=== PATIENT | male | born 1975 | race Asian ===

== ENCOUNTER 2024-01-15 08:17 | Outpatient (AMB) | payer OTHER, SELFPAY ==
[2024-01-15 08:35] VITALS: BP 120/80; PULSE 5; TEMP 37; O2SAT 97; BMI 25.5
--- NOTE | 2024-01-15 08:35 | AM.OFFWIN_ITS ---
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 Pt denies any chronic medical problems. Denies injury or trauma. He does c/o right sided headache. PFSH Social History Patient Tobacco Use Status: Current everyday Tobacco user Review of Systems Const All systems reviewed & are unremarkable except as noted in HPI and below Physical Exam Vital Signs: Last Vital Signs Temp 98.6 F 01/15/24 08:35 Pulse 5 L 01/15/24 08:35 BP 120/80 01/15/24 08:35 Pulse Ox 97 01/15/24 08:35 Oxygen Delivery Method Room Air 01/15/24 08:35 BMI result Body Mass Index 25.5 Const General: comfortable and no acute distress Orientation/consciousness: patient oriented x3 Eyes Pupils: Equal, round and reactive pupils present EOM: EOMs intact bilaterally Cardio Rate: regular rate Rhythm: regular rhythm Neuro General: patient oriented x3, gait normal and moves all extremities Cranial nerves: Yes CN's II-XII intact bilaterally and Yes Equal, round and reactive pupils present Motor exam (neuro): 5/5 motor strength present throughout Psych Affect: normal affect Attitude: cooperative Assessment & Plan Assessment & Plan (1) Peripheral neuropathy: Code(s): G62.9 - Polyneuropathy, unspecified Qualifiers: Peripheral neuropathy type: polyneuropathy, unspecified Qualified Code(s): G62.9 - Polyneuropathy, unspecified Plan: - No signs of Stroke, exam normal - No clear etiology - Pt has an upcoming appointment with new PCP - Will prescribe Muscle relaxants today. Medications: New cyclobenzaprine 5 mg PO BEDTIME 14 tabs 0RF G62.9 - Polyneuropathy, unspecified Coding Level of Care Code New Pt Level 3 (22595) Diagnoses Peripheral polyneuropathy G62.9 Peripheral neuropathy type: polyneuropathy, unspecified Time Spent (min) 15
== END 2024-01-15 10:52 | disposition home or self-care (01) ==
PROVIDERS: PCP Nurse Practitioner Family; Visit Provider Nurse Practitioner Family
DX: G62.9 Polyneuropathy, unspecified (principal)
CPT/HCPCS: 99203

== ENCOUNTER 2024-03-04 08:50 | Outpatient (AMB) | payer OTHER, SELFPAY ==
--- NOTE | 2024-03-04 08:52 | AM.OFFWIN_ITS ---
Intake Vital Signs 03/04/24 08:53 Height 5 ft 3 in Weight 142 lb 4 oz BMI 25.2 BP 128/80 Blood Pressure Location Lt brachial Position Sitting Pulse 73 Pulse Source Pulse Oximeter Temp 98.1 F Temp Source Oral Pulse Oximetry (%) 97 Oxygen Delivery Method Room Air Intake Visit Reasons: EP headache Intake Note: Pt presents to the office today for c/o cough,wheezing, and a headache that started about a week ago. Patient Tobacco Use Status: Former Tobacco user Allergies No Known Allergies Allergy (Verified 03/04/24 08:55) Medication List - Last Reconciled 03/04/24 by Rose Pinto MD No Known Home Meds HPI EP headache HPI Details 48-year-old gentleman came in today to b e evaluated for upper respiratory tract infection Patient has been having symptoms for the past 10 days Patient says that it started with allergy like symptoms and now he has nasal congestion and cough spitting out yellow phlegm At night he hear himself wheeze There is no chest pain no shortness a breath no nausea vomiting no diarrhea there is mild chills but he has not checked his temperature In clinic today patient is afebrile His examination is benign other than nasal congestion I am prescribing azithromycin and prednisone for 5 days Patient was also instructed to get Zyrtec [id number] if he has allergies and start taking that. [facility] Social History Patient Tobacco Use Status: Former Tobacco user Review of Systems Const All systems reviewed & are unremarkable except as noted in HPI and below Physical Exam Vital Signs: Last Vital Signs Temp 98.1 F 03/04/24 08:53 Pulse 73 03/04/24 08:53 BP 128/80 03/04/24 08:53 Pulse Ox 97 03/04/24 08:53 Oxygen Delivery Method Room Air 03/04/24 08:53 BMI result Body Mass Index 25.2 Const General: no acute distress HEENT Other: Mild throat erythema present, uvula midline, no exudate. Ears: mastoids normal General nose exam: Normal external nose present Throat: Yes posterior oropharynx abnormal Neck Neck: Yes no lymphadenopathy Resp Effort & Inspection: normal respiratory effort Auscultation: clear to auscultation bilaterally Cardio Other: S1 S2 Psych Mental Status: mental status grossly normal Assessment & Plan Assessment & Plan (1) URI with cough and congestion: Code(s): J06.9 - Acute upper respiratory infection, unspecified Plan 48-year-old gentleman came in today to be evaluated for upper respiratory tract infection Patient has been having symptoms for the past 10 days Patient says that it started with allergy like symptoms and now he has nasal congestion and cough spitting out yellow phlegm At night he hear himself wheeze There is no chest pain no shortness a breath no nausea vomiting no diarrhea there is mild chills but he has not checked his temperature In clinic today patient is afebrile His examination is benign other than nasal congestion I am prescribing azithromycin and prednisone for 5 days Patient was also instructed to get Zyrtec [id number] if he has allergies and start taking that. Medications: New azithromycin Take 2 tablets today then 1 daily 250 mg PO ONCE 6 tabs 0RF 5 days J06.9 - Acute upper respiratory infection, unspecified prednisone 20 mg PO DAILY 5 tabs 0RF 5 days Coding Level of Care Code Est Pt Level 3 (33853) Diagnoses URI with cough and congestion J06.9
[2024-03-04 08:53] VITALS: BP 128/80; PULSE 73; TEMP 36.7; O2SAT 97; BMI 25.2
== END 2024-03-04 09:37 | disposition home or self-care (01) ==
PROVIDERS: PCP Nurse Practitioner Family; Visit Provider Internal Medicine
DX: J06.9 Acute upper respiratory infection, unspecified (principal)
CPT/HCPCS: 99213

== ENCOUNTER 2024-04-29 11:25 | Outpatient (AMB) | payer OTHER, SELFPAY ==
[2024-04-29 11:27] VITALS: BP 126/78; PULSE 72; TEMP 36.7; O2SAT 98
--- NOTE | 2024-04-29 11:27 | MHC.OFFWIV ---
Intake Vital Signs 04/29/24 11:27 Height 5 ft 3 in BP 126/78 Blood Pressure Location Lt brachial Position Sitting Pulse 72 Pulse Source Pulse Oximeter Temp 98.0 F Temp Source Temporal Artery Scan Pulse Oximetry (%) 98 Oxygen Delivery Method Room Air Intake Visit Reasons: EP LT hand pain Intake Note: pt is here for left hand pain Patient Tobacco Use Status: Former Tobacco user Allergies No Known Allergies Allergy (Verified 04/29/24 11:27) Do you need a note to return to daycare/school/sports/work: No HPI EP LT hand pain HPI Details This note is constructed using voice recognition software. 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 48-year-old male patient presents left lower arm pain, onset over 1 year ago, but with worsening in the past week after lifting a heavy item. He notes that he has used ice in the past, but has not done anything else to resolve the pain. He has not been evaluated for in the past either. He notes that as a result of the pain he avoids squeezing his hand closed as that sometimes makes the pain worse. He did not have any injury, deformity, or previous surgery or injury to the area. [facility] Social History Patient Tobacco Use Status: Former Tobacco user Review of Systems Const All systems reviewed & are unremarkable except as noted in HPI and below Physical Exam Vital Signs: Last Vital Signs Temp 98.0 F 04/29/24 11:27 Pulse 72 04/29/24 11:27 BP 126/78 04/29/24 11:27 Pulse Ox 98 04/29/24 11:27 Oxygen Delivery Method Room Air 04/29/24 11:27 Const General: cooperative, healthy appearing, comfortable, no acute distress and alert Orientation/consciousness: patient oriented x3 Limitations: no limitations Skin Other: No erythema, ecchymosis. General skin exam: no rashes or lesions noted, elasticity normal and turgor normal Neuro General: patient oriented x3 Extrem Other: Increased tenderness on flexion and extension of wrist. No inflammation. General: Yes normal to inspection, Yes full ROM, Yes capillary refill normal and Yes normal exam except as noted Left upper extremity: normal to inspection, full ROM, normal capillary refill, no joint enlargement and elbow/forearm Details: tenderness (extensor tendon); ROM normal, no unusual warmth, no abrasions, no ecchymosis and no crepitus Psych Appearance: grossly normal Mental Status: mental status grossly normal Speech and movement: Normal speech and movement present Affect: normal affect Assessment & Plan Assessment & Plan (1) Left elbow tendinitis: Code(s): M77.8 - Other enthesopathies, not elsewhere classified Plan: Toni wrap applied to left elbow. Advised ice, rest, and use of NSAIDs. Prescription provided as patient does not have this at home. Patient has appointment with primary care provider in 1 month, advised follow-up with PCP if symptoms persist as he may need referral to ortho for consideration of treatment options versus physical therapy. Plan See above for full details and plan. Medications: New ibuprofen 600 mg PO Q8H 10 days PRN 30 tabs 0RF pain Coding Level of Care Code Est Pt Level 3 (79855) Diagnoses Left elbow tendinitis M77.8
== END 2024-04-29 11:41 | disposition home or self-care (01) ==
PROVIDERS: PCP Nurse Practitioner Family; Visit Provider Registered Nurse
DX: M77.8 Other enthesopathies, not elsewhere classified (principal)
CPT/HCPCS: 99213

== ENCOUNTER 2024-07-15 07:59 | Outpatient (AMB) | payer OTHER, SELFPAY ==
[2024-07-15 08:05] VITALS: BP 122/80; PULSE 57; O2SAT 98; BMI 25.3
--- NOTE | 2024-07-15 08:05 | AM.OFFWIN_ITS ---
Intake Vital Signs 07/15/24 08:05 Height 5 ft 3 in Weight 143 lb BMI 25.3 BP 122/80 Blood Pressure Location Rt brachial Position Sitting Pulse 57 Pulse Source Pulse Oximeter Pulse Oximetry (%) 98 Oxygen Delivery Method Room Air Intake Visit Reasons: EP Pain on his right side from head to his arm Intake Note: pt is here for pain on his right side, head to arm. Patient Tobacco Use Status: Former Tobacco user Allergies No Known Allergies Allergy (Verified 07/15/24 08:05) Do you need a note to return to daycare/school/sports/work: No HPI HPI Comments History of Present Illness Details This is a 48-year-old male with no stated past medical history presenting for left elbow pain that radiates to his left hand and right-sided neck pain that radiates in a tingling sensation to his right index finger. Patient denies any injury or trauma and states that his symptoms have been ongoing for ?months?. Patient took ibuprofen [id number] only 1 time without relief of his symptoms. [facility] Medical History (Updated 07/15/24 @ 08:28 by Charisse Velarde PA-C) Chronic lower back pain Social History Patient Tobacco Use Status: Former Tobacco user Review of Systems Const All systems reviewed & are unremarkable except as noted in HPI and below Reports no additional complaints Eyes Reports no additional complaints ENT Reports no additional complaints and Reports neck pain Musc Reports arthralgias (Left elbow), Reports neck pain and Reports tingling (Right index finger) Skin/Breast Reports system reviewed and no additional complaints, except as documented Neuro Reports radicular pain (Right upper extremity) and Reports tingling (Right index finger) Psych Reports no additional complaints Endo Reports no additional complaints Akhil/Lymph Reports no additional complaints Aller/Immun Reports no additional complaints Physical Exam Vital Signs: Last Vital Signs Pulse 57 07/15/24 08:05 BP 122/80 07/15/24 08:05 Pulse Ox 98 07/15/24 08:05 Oxygen Delivery Method Room Air 07/15/24 08:05 BMI result Body Mass Index 25.3 Const General: cooperative, healthy appearing, comfortable, no acute distress, well developed, alert, awake and Physically active Nutritional Appearance: average body habitus Orientation/consciousness: patient oriented x3 Limitations: no limitations Neck Neck: Yes full ROM, Yes no meningeal signs, Yes supple and Yes tender (right cervical paraspinous musculature; no midline tenderness) Lymphatic: no lymphadenopathy noted Skin General skin exam: no rashes or lesions noted Neuro General: patient oriented x3 and no meningeal signs Gait exam (Neuro): Normal gait present Motor exam (neuro): 5/5 motor strength present throughout (upper extremities bi laterally; surgical 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 strength 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 bilaterally) Extrem General: Yes normal to inspection and Yes full ROM Right upper extremity: normal to inspection, full ROM, normal capillary refill, shoulder/upper arm Details: normal ROM; no tenderness and no swelling and Extremity exam: right hand Details: normal to inspection, normal capillary refill, neuromotor exam normal and neurosensory exam normal Left upper extremity: normal to inspection, full ROM, normal capillary refill, no joint enlargement, elbow/forearm Details: tenderness (left lateral epicondyle and 2cm distal of epicondyle; no medical epicondyle pain) and hand Details: normal to inspection, normal capillary refill, neuromotor exam normal and ne urosensory exam normal Psych Appearance: grossly normal Mental Status: mental status grossly normal Insight: Good insight present (Psych) Judgement: Good judgement present (Psych) Assessment & Plan Assessment & Plan (1) Left lateral epicondylitis: Comment: Patient educated to use a counterforce brace. Code(s): M77.12 - Lateral epicondylitis, left elbow Plan: Naprosyn 500 mg b.i.d. times 10 days and the patient is instructed to use a counterforce brace during the day and remove at nighttime. (2) Right cervical radiculopathy: Code(s): M54.12 - Radiculopathy, cervical region Plan: Naprosyn 500 mg b.i.d. times 10 days. Follow up with PCP in 10-14 days for a re-evaluation of symptoms and possible referral for physical therapy evaluation. Medications: New naproxen (Naprosyn) 500 mg PO BID 20 tabs 0RF Coding Level of Care Code New Pt Level 4 (05069) Diagnoses Left lateral epicondylitis M77.12 Right cervical radiculopathy M54.12 Time Spent (min) 20
== END 2024-07-15 09:02 | disposition home or self-care (01) ==
PROVIDERS: PCP Nurse Practitioner Family; Visit Provider Physician Assistant
DX: M77.12 Lateral epicondylitis, left elbow (principal); M54.12 Radiculopathy, cervical region

== ENCOUNTER → 2024-07-15 07:59 | Outpatient (BNVA) | payer OTHER, SELFPAY | PROVIDERS: PCP Nurse Practitioner Family | DX: M77.12 Lateral epicondylitis, left elbow (principal); M54.12 Radiculopathy, cervical region | CPT/HCPCS: 99202 ==

== ENCOUNTER 2024-08-26 08:32 | Outpatient (REF) | payer OTHER, SELFPAY ==
[2024-08-26 11:11] LABS: Influenza A PCR NEGATIVE (Negative); Influenza B PCR NEGATIVE (Negative); Resp Syncy Virus RNA Qual PCR NEGATIVE (Negative); SARS COV2 PCR INHOUSE NEGATIVE (Negative)
== END 2024-08-26 08:33 | disposition home or self-care (01) ==
LOC: HO.HMGCX 08:32
PROVIDERS: PCP Nurse Practitioner Family; Visit Provider Physician Assistant Medical
DX: J06.9 Acute upper respiratory infection, unspecified (principal); R05.9 Cough, unspecified
CPT/HCPCS: 0241U; 71046; 99212

== ENCOUNTER 2024-08-26 08:32 | Outpatient (AMB) | payer OTHER, SELFPAY ==
--- NOTE | 2024-08-26 08:36 | MHC.OFFWIV ---
Intake Vital Signs 08/26/24 08:40 Height 5 ft 3 in Weight 139 lb BMI 24.6 BP 110/76 Blood Pressure Location Rt brachial Position Sitting Pulse 108 H Pulse Source Pulse Oximeter Temp 99.4 F Temp Source Oral Pulse Oximetry (%) 98 Oxygen Delivery Method Room Air Intake Visit Reasons: EP body aches, eye pain, cough, chills Intake Note: Patient here for headaches, cough, chills and body aches that has been present for 3 days, Patient Tobacco Use Status: Former Tobacco user Allergies No Known Allergies Allergy (Verified 08/26/24 08:41) Do you need a note to return to daycare/school/sports/work: Yes HPI HPI Comments History of Present Illness Details This is a 48-year-old male who presented to the walk-in clinic complaining of viral URI symptoms including fever/chills, nasal/sinus congestion, rhinorrhea, sore throat, myalgias, and a dry cough. Patient states he has not measured his temperature at home but he has subjective fevers. He denies any abdominal pain or nausea/vomiting/diarrhea. He denies any chest pain or shortness of breath. [facility] Medical History (Updated 07/15/24 @ 08:28 by Charisse Velarde PA-C) Chronic lower back pain Social History Patient Tobacco Use Status: Former Tobacco user Review of Systems Const All systems reviewed & are unremarkable except as noted in HPI and below Reports no additional complaints Eyes Reports no additional complaints ENT Reports no additional complaints Card Reports no additional complaints Resp Reports no additional complaints GI Reports no additional complaints Reports no additional complaints Musc Reports no additional complaints Skin/Breast Reports system reviewed and no additional complaints, except as documented Neuro Reports no additional complaints Psych Reports no additional complaints Endo Reports no additional complaints Akhil/Lymph Reports no additional complaints Aller/Immun Reports no additional complaints Physical Exam Vital Signs: Last Vital Signs Temp 99.4 F 08/26/24 08:40 Pulse 108 H 08/26/24 08:40 BP 110/76 08/26/24 08:40 Pulse Ox 98 08/26/24 08:40 Oxygen Delivery Method Room Air 08/26/24 08:40 BMI result Body Mass Index 24.6 Const Other: Vital signs reviewed. Constitutional: Non-toxic appearing. No acute distress. Well-developed and well-nourished. HEENT: Normocephalic and atraumatic.Moist mucous membranes. No pharyngeal erythema or exudates. Skin: Warm and dry. No rashes or lesions noted. Neck: Full and painless range of motion. No cervical lymphadenopathy. Cardio: Regular rate and rhythm. No murmurs, gallops, or rubs. No lower extremity edema. No JVD. Pulmonary: No respiratory distress. No accessory muscle usage. Clear to auscultation bilaterally without wheezing, crackles, or rhonchi. Gastrointestinal: Soft, nontender, and nondistended in all 4 quadrants. Normoactive bowel sounds in all 4 quadrants. Musculoskeletal: Normal range of motion in joints throughout the body. No deformity or other signs of injury. Neuro: Alert and oriented x4. Cranial nerves 2-12 grossly intact. No focal deficits appreciated. Psych: Normal mood and affect. Assessment & Plan Assessment & Plan (1) Acute upper respiratory infection, unspecified: Code(s): J06.9 - Acute upper respiratory infection, unspecified Plan: This is a 48-year-old male who presented to the walk-in clinic complaining of viral URI symptoms x3 days. Patient's history and physical most consistent with acute viral upper respiratory tract infection. A chest x-ray was obtained, which was negative for acute cardiopulmonary process. COVID/flu/RSV sent. Recommended symptomatic management including rest, increased fluids, advil/tylenol for pain/fever, and over the counter throat lozenges/decongestants. Patient advised to follow up here or go to the emergency room for worsening/persistent symptoms. Patient verbalized understanding and is agreeable with the plan. Orders: Orders XR chest 2V Today R05.9 - Cough, unspecified SARS-CoV2/FLU/RSV Today J06.9 - Acute upper respiratory infection, unspecified Medications: New fluticasone furoate 27.5 mcg/actuation into each nostril 2 sprays intranasal DAILY 6.6 mL 0RF benzonatate 100 mg PO TID PRN 10 caps 0RF cough Coding Level of Care Code Est Pt Level 3 (35688) Diagnoses Acute upper respiratory infection, unspecified J06.9
[2024-08-26 08:40] VITALS: BP 110/76; PULSE 108; TEMP 37.4; O2SAT 98; BMI 24.6
== END 2024-08-26 09:35 | disposition home or self-care (01) ==
PROVIDERS: PCP Nurse Practitioner Family; Visit Provider Physician Assistant Medical
DX: J06.9 Acute upper respiratory infection, unspecified (principal)

== ENCOUNTER 2025-02-06 12:27 | Outpatient (AMB) | payer OTHER, SELFPAY ==
[2025-02-06 12:28] VITALS: BP 124/82; PULSE 67; RESP 18; TEMP 36.9; O2SAT 98; BMI 24.8
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
== END 2025-02-06 13:00 | disposition home or self-care (01) ==
LOC: HO.HMCC 12:28
PROVIDERS: PCP Nurse Practitioner Family; Visit Provider Nurse Practitioner Family
DX: Z00.00 Encounter for general adult medical examination without abnormal findings (principal); Z12.11 Encounter for screening for malignant neoplasm of colon; Z12.5 Encounter for screening for malignant neoplasm of prostate; M54.50 Low back pain, unspecified; G89.29 Other chronic pain

== ENCOUNTER 2025-02-06 12:27 | Outpatient (REF) | payer OTHER, SELFPAY ==
--- NOTE | ~2025-02-06 | XR_ITS ---
EXAMINATION: XR LUMBOSACRAL SPINE CLINICAL INFORMATION: M54.50 - Low back pain, unspecified COMPARISON: None available. TECHNIQUE: Three views of the lumbosacral spine. FINDINGS: Marginal osteophyte formation and syndesmophyte formation at L4-5 and L2-3 levels. No acute cortical disruption or gross malalignment. No lytic or blastic lesions. Spina bifida occulta, S1. XR/XR lumbar spine 2-3V IMPRESSION: Mild multilevel lumbar spondylosis. Electronically signed by: Brando Szymanski MD 02/08/2025 07:32 AM EDT
--- NOTE | ~2025-02-06 | XR_ITS ---
EXAMINATION: XR SACRUM AND COCCYX CLINICAL INFORMATION: M54.50 - Low back pain, unspecified COMPARISON: None available. TECHNIQUE: 2 views of the sacrum and 2 views of the coccyx were obtained. FINDINGS: No acute cortical disruption. No gross malalignment. No lytic or blastic lesions. XR/XR sacrum coccyx min 2V IMPRESSION: No acute fracture or gross abnormality, sacrum. Electronically signed by: Brando Szymanski MD 02/08/2025 06:15 AM EDT
== END 2025-02-06 12:28 | disposition home or self-care (01) ==
LOC: HO.HMGCX 12:27
PROVIDERS: PCP Nurse Practitioner Family; Visit Provider Nurse Practitioner Family
DX: Z00.00 Encounter for general adult medical examination without abnormal findings (principal); M54.50 Low back pain, unspecified; G89.29 Other chronic pain
CPT/HCPCS: 72100; 72220; 96127; 99386

== ENCOUNTER → 2025-02-06 13:07 | Outpatient (BNV) | payer OTHER, SELFPAY | PROVIDERS: PCP Nurse Practitioner Family; Visit Provider Radiology Diagnostic Radiology | DX: M54.50 Low back pain, unspecified (principal) | CPT/HCPCS: 72100; 72220 ==

== ENCOUNTER 2025-02-10 09:27 | Outpatient (REF) | payer OTHER, SELFPAY ==
[2025-02-10 13:07] LABS: MANUAL DIFF FLAG NO
[2025-02-10 13:16] LABS: Appearance Urine Clear; Color Urine Yellow; Glucose Urine UA Negative (Negative); Leukocyte Esterase Urine Negative (Negative); Nitrite Urine Negative (Negative); Urine Blood Negative (Negative); Urine Ketones Trace mg/dL (Negative); Urine Protein Negative (Neg-Trace)
[2025-02-10 13:26] LABS: Basophils Percent Auto 0.7 % (0-2); Eosinophils Absolute Auto 0.2 X10*3/uL (0.0-0.4); Eosinophils Percent Auto 3.6 % (0-4); Hemoglobin 15.8 g/dl (14.0-18.0); Imm Gran Abs Auto 0.05 X10*3/uL (0.00-0.03); Imm Gran Pct Auto 0.8 % (0.0-0.4); Lymphocytes Percent Auto 33.3 % (20-40); Mean Corpuscular HGB Conc 35.1 g/dl (31.0-36.0); Mean Corpuscular Hemoglobin 31.2 pg (27.0-33.0); Mean Corpuscular Volume 88.8 fL (80.0-98.0); Mean Platelet Volume 12.1 fL (9.4-12.4); Monocytes Absolute Auto 0.5 X10*3/uL (0.1-1.2); Neutrophils Absolute Auto 3.2 x10*3/uL (2.0-8.3); Neutrophils Percent Auto 53.6 % (45-73); Platelet Count 148 X10*3/uL (160-400); Red Blood Count 5.07 X10*6/uL (4.60-5.80); Red Cell Distribution Width 12.8 % (11.0-16.0); White Blood Count 5.9 X10*3/uL (4.8-10.8)
[2025-02-10 13:41] LABS: Alanine Aminotransferase 46 U/L (0-40); Albumin Level 4.5 g/dL (3.5-5.0); Alkaline Phosphatase 81 U/L (39-117); Anion Gap 11 (12-20); Aspartate Amino Transferase 39 U/L (5-37); Bilirubin Total 0.6 mg/dL (0.0-1.0); Blood Urea Nitrogen 15 mg/dL (9-16); Calcium 9.7 mg/dL (8.4-10.2); Carbon Dioxide 26 mmol/L (22-29); Chloride 106 mmol/L (96-108); Cholesterol 246 mg/dL (<200); Estimated Glomerular Filt Rate > 60; Glucose Fasting 94 mg/dL (60-99); HDL Cholesterol 36 mg/dL (>40); Sodium 139 mmol/L (135-145); Total Protein 7.9 g/dL (6.5-8.0); Triglycerides 655 mg/dL (<150)
[2025-02-10 13:54] LABS: Prostate Specific Antigen Scr 1.57 ng/mL (<0.05-4.0)
[2025-02-10 13:58] LABS: TSH reflex Free T4 1.34 uIU/mL (0.32-4.0); Vitamin D 25-OH Total 31.6 ng/mL (>30)
== END 2025-02-10 09:28 | disposition home or self-care (01) ==
LOC: HO.HMGCLDS 09:27
PROVIDERS: PCP Nurse Practitioner Family; Visit Provider Nurse Practitioner Family
DX: Z00.00 Encounter for general adult medical examination without abnormal findings (principal); Z12.5 Encounter for screening for malignant neoplasm of prostate
CPT/HCPCS: 36415; 80053; 80061; 81003; 82306; 84153; 84443; 85025

== ENCOUNTER 2025-04-07 10:49 | Outpatient (REF) | payer OTHER, SELFPAY ==
--- NOTE | ~2025-04-07 | US_ITS ---
EXAMINATION: US ABDOMEN COMPLETE CLINICAL INFORMATION: Abnormal serum enzymes.. COMPARISON: None available. TECHNIQUE: Real-time imaging of the abdominal viscera. FINDINGS: PANCREAS: Visualized portions are unremarkable. ABDOMINAL AORTA: The proximal, mid, and distal segments are normal in caliber. INFERIOR VENA CAVA: Visualized portions are normal. LIVER: The liver is normal in size. The liver contour is normal. Mildly increased parenchymal echogenicity is present. No focal hepatic lesion. Right hepatic lobe measures 12.7 cm. There is no intrahepatic biliary duct dilatation seen. GALLBLADDER: The gallbladder is physiologically distended without evidence of stones, sludge, polyps, wall thickening or pericholecystic fluid. COMMON BILE DUCT: Normal in caliber measuring 0.3 cm in diameter. RIGHT KIDNEY: No hydronephrosis. No renal calculi or focal parenchymal lesions. The kidney measures 8.8 cm in maximum dimension. LEFT KIDNEY: No hydronephrosis. No renal calculi or focal parenchymal lesions. The kidney measures 9.0 cm in maximum dimension. SPLEEN: The spleen measures 10.8 cm in maximum dimension. FREE FLUID: None. US/US abdomen complete IMPRESSION: 1. Mildly increased hepatic echogenicity, most likely on the basis of mild steatosis. No suspicious focal lesion. 2. Normal gallbladder and bile ducts. Electronically signed by: Damian Low MD 04/07/2025 11:29 AM EDT
== END 2025-04-07 10:50 | disposition home or self-care (01) ==
LOC: HO.US 10:49
PROVIDERS: PCP Nurse Practitioner Family; Visit Provider Nurse Practitioner Family
DX: R74.8 Abnormal levels of other serum enzymes (principal)
CPT/HCPCS: 76700

== ENCOUNTER → 2025-04-07 10:54 | Outpatient (BNV) | payer OTHER, SELFPAY | PROVIDERS: PCP Nurse Practitioner Family; Visit Provider Radiology Diagnostic Radiology | DX: R74.8 Abnormal levels of other serum enzymes (principal) | CPT/HCPCS: 76700 ==

== ENCOUNTER 2025-04-28 08:02 | Outpatient (REF) | payer MEDICAID, SELFPAY ==
[2025-04-28 11:00] LABS: Alanine Aminotransferase 54 U/L (0-40); Albumin Level 4.6 g/dL (3.5-5.0); Alkaline Phosphatase 89 U/L (39-117); Anion Gap 11 (12-20); Aspartate Amino Transferase 51 U/L (5-37); Blood Urea Nitrogen 14 mg/dL (9-16); Calcium 10.0 mg/dL (8.4-10.2); Carbon Dioxide 28 mmol/L (22-29); Chloride 103 mmol/L (96-108); Cholesterol 238 mg/dL (<200); Estimated Glomerular Filt Rate > 60; HDL Cholesterol 43 mg/dL (>40); Potassium 4.2 mmol/L (3.3-5.1); Sodium 138 mmol/L (135-145); Total Protein 7.9 g/dL (6.5-8.0); Triglycerides 518 mg/dL (<150)
[2025-04-28 11:01] LABS: Hematocrit 46.5 % (42.0-52.0); Hemoglobin 16.2 g/dl (14.0-18.0); Imm Gran Abs Auto 0.01 X10*3/uL (0.00-0.03); Imm Gran Pct Auto 0.2 % (0.0-0.4); Lymphocytes Absolute Auto 1.7 X10*3/uL (1.2-4.9); MANUAL DIFF FLAG SCAN; Mean Corpuscular HGB Conc 34.8 g/dl (31.0-36.0); Mean Corpuscular Hemoglobin 31.0 pg (27.0-33.0); Mean Corpuscular Volume 89.1 fL (80.0-98.0); NRBC Abs Auto 0.000 X10*3/uL (0.0-0.012); NRBC Pct Auto 0.0 /100WBC (0.0-0.2); PLT CLUMP 1; Red Blood Count 5.22 X10*6/uL (4.60-5.80); SCAN SMEAR FLAG 1; White Blood Count 5.7 X10*3/uL (4.8-10.8)
[2025-04-28 11:06] LABS: HBS Num1 0.00 mIU/mL (0-7.99); HBc Num1 0.06 S/CO (0.00-0.79); HBsAGNum1 0.30 S/CO (0.00-0.99); Hepatitis A Antibody IgM 0.16 Index (0-0.79); Hepatitis B Surface Antigen Negative (Negative); ~HepC Num1 0.15 S/CO (0.00-0.79); ~Hepatitis A Antibody IgM Nonreactive (Nonreactive); ~Hepatitis B Surface Antibody NONREACTIVE (Nonreactive); ~Hepatitis C Antibody Nonreactive (Nonreactive)
[2025-04-28 11:15] LABS: Platelet Count 138 X10*3/uL (160-400)
== END 2025-04-28 08:03 | disposition home or self-care (01) ==
LOC: HO.HMGCLDS 08:02
PROVIDERS: PCP Nurse Practitioner Family; Visit Provider Nurse Practitioner Family
DX: R74.8 Abnormal levels of other serum enzymes (principal); E78.5 Hyperlipidemia, unspecified; E78.1 Pure hyperglyceridemia; D69.6 Thrombocytopenia, unspecified
CPT/HCPCS: 36415; 80053; 80061; 83721; 85025; 86704; 86706; 86709; 86803; 87340

== ENCOUNTER 2025-07-07 08:05 | Outpatient (REF) | payer MEDICAID, SELFPAY ==
[2025-07-07 10:23] LABS: MANUAL DIFF FLAG NO
[2025-07-07 10:29] LABS: Hematocrit 45.7 % (42.0-52.0); Hemoglobin 15.6 g/dl (14.0-18.0); Imm Gran Abs Auto 0.01 X10*3/uL (0.00-0.03); Imm Gran Pct Auto 0.2 % (0.0-0.4); Lymphocytes Absolute Auto 1.9 X10*3/uL (1.2-4.9); Mean Corpuscular HGB Conc 34.1 g/dl (31.0-36.0); Mean Corpuscular Hemoglobin 30.4 pg (27.0-33.0); Mean Corpuscular Volume 88.9 fL (80.0-98.0); NRBC Abs Auto 0.000 X10*3/uL (0.0-0.012); NRBC Pct Auto 0.0 /100WBC (0.0-0.2); Platelet Count 146 X10*3/uL (160-400); Red Blood Count 5.14 X10*6/uL (4.60-5.80); White Blood Count 5.9 X10*3/uL (4.8-10.8)
[2025-07-07 11:20] LABS: Alanine Aminotransferase 45 U/L (0-40); Albumin Level 4.5 g/dL (3.5-5.0); Alkaline Phosphatase 86 U/L (39-117); Anion Gap 12 (12-20); Aspartate Amino Transferase 41 U/L (5-37); Blood Urea Nitrogen 9 mg/dL (9-16); Calcium 9.1 mg/dL (8.4-10.2); Carbon Dioxide 25 mmol/L (22-29); Chloride 107 mmol/L (96-108); Cholesterol 142 mg/dL (<200); Estimated Glomerular Filt Rate > 60; HDL Cholesterol 48 mg/dL (>40); Potassium 3.9 mmol/L (3.3-5.1); Sodium 140 mmol/L (135-145); Total Protein 7.5 g/dL (6.5-8.0); Triglycerides 161 mg/dL (<150)
== END 2025-07-07 08:06 | disposition home or self-care (01) ==
LOC: HO.HMGCLDS 08:05
PROVIDERS: PCP Nurse Practitioner Family; Visit Provider Nurse Practitioner Family
DX: E78.1 Pure hyperglyceridemia (principal); D69.6 Thrombocytopenia, unspecified; E78.5 Hyperlipidemia, unspecified
CPT/HCPCS: 36415; 80053; 80061; 85025